=== PATIENT | female | born 2005 | race Two or more races ===

== ENCOUNTER → 2024-03-28 20:48 | Outpatient (BNV) | payer OTHER, SELFPAY | PROVIDERS: Emergency Provider Internal Medicine; Visit Provider Radiology Diagnostic Radiology | DX: S09.90XA Unspecified injury of head, initial encounter (principal) | CPT/HCPCS: 70450; 70486; 72125 ==

== ENCOUNTER 2024-06-21 20:58 | Emergency (ER) | payer SELFPAY ==
[2024-06-21 21:03] VITALS: BP 130/83; PULSE 86; RESP 18; TEMP 36.9; O2SAT 98; BMI 26.6
[2024-06-21 21:37] LABS: IDNOW Serial# 6674DD1D; Strep A Nucleic Acid Negative (Negative)
[2024-06-21 22:13] LABS: Influenza A PCR NEGATIVE (Negative); Influenza B PCR POSITIVE (Negative); Resp Syncy Virus RNA Qual PCR NEGATIVE (Negative); SARS COV2 PCR INHOUSE NEGATIVE (Negative)
--- NOTE | 2024-06-22 00:04 | PC.NURSE ---
Pt eval by PA in triage, + flu B, cleared for dc home.
--- NOTE | 2024-06-22 00:15 | ED_ITS ---
HPI - URI/Sore Throat General Chief Complaint: Upper Respiratory Symptoms Stated Complaint: Sore throat Time Seen by Provider: 06/21/24 23:46 Source: patient Mode of arrival: ambulatory Limitations: no limitations History of Present Illness ED Provider: Ximena Robin NP HPI Narrative: patient is a 18-year-old female who presents emergency department for evaluation of multiple flu-like symptoms including a productive cough, nasal congestion, sore throat, subjective fever for the past 4 days. Reports that she has been alternating between DayQuil and NyQuil with only some improvement in her symptoms. Denies headache, dizziness, neck pain, neck stiffness, chest pain, shortness of breath, difficulty breathing, nausea, vomiting, abdominal pain, numbness or tingling of the extremities, genitourinary symptoms. Related Data Allergies Allergy/AdvReac Type Severity Reaction Status Date / Time No Known Allergies Allergy Verified 06/21/24 21:04 Review of Systems Review of Systems: Yes all other systems are reviewed and are negative PMFSH Past Medical History Attestation statement: The following information was validated with the patient. Source: old records reviewed Social History Social History Do you have a plan to hurt others: No Plan Physical Exam Vital Signs: Vital Signs: Last Vital Signs Temp 98.4 F 06/21/24 21:03 Pulse 86 06/21/24 21:03 Resp 18 06/21/24 21:03 BP 130/83 06/21/24 21:03 Pulse Ox 98 06/21/24 21:03 O2 Del Method Room Air 06/21/24 21:03 BMI result Body Mass Index 26.6 Appearance: Alert.?Oriented to person, place and time. No acute distress.?Normal affect. ENT: TM normal bilaterally. Pharynx Is erythematous without tonsillar hypertrophy or exudates. Uvula is midline. No trismus. No drooling.? Neck: Normal inspection.? Neck supple.??No cervical adenopathy CVS: Heart sounds normal. Normal heart rate and rhythm.? Pulses normal.?? Respiratory: No respiratory distress.? Lung sounds clear to auscultation bilaterally?? Skin: Skin warm and dry.? Normal skin color.? ? Neuro: Moves all extremities spontaneously. Sensation intact bilaterally. No motor deficits. Ambulates with normal steady gait. Medical Decision Making Medical Decision Making [facility] [place] Narrative: Patient is a 18-year-old female presents emergency department for evaluation of viral type symptoms as per HPI. COVID-19 /RSV testing is negative. Group a strep testing is negative. Examination is not consistent with RPA /[employer]ESSION[employer]. Influenza B testing is positive, consistent with her symptoms. Given duration since illness would not be a candidate for Tamiflu at this time. History and physical exam with low suspicion for pneumonia. Well-appearing, nontoxic, afebrile, no tachycardia or tachypnea/hypoxia. Speaking clear full sentences, ambulatory with steady gait. Discussed conservative treatment including rest, hydration, Tylenol/ibuprofen as needed for fever and body aches, saline nasal spray, humidifier, bygj-fnw-gtsrelh cold medication. Advised to follow-up with primary care provider as needed, discussed reasons to return back to the emergency department. All questions were answered. Patient discharged home in stable condition. Differential Diagnosis Differential Diagnoses: The differential diagnosis associated with the presentation includes ( See narrative above) Admission/Observation Consideration of admission/observation: Escalation of care including admission/observation considered ( see narrative above) Lab Data [facility] [place] Lab Attestation statement: I reviewed the patient's lab results. ( see narrative above) Labs: Lab Results 06/21/24 Range/Units 21:20 Influenza Type A (PCR) NEGATIVE (Negative) Influenza Type B (PCR) POSITIVE A (Negative) RSV RNA Qual (PCR) NEGATIVE (Negative) SARS-CoV-2 RNA (RT-PCR) NEGATIVE (Negative) S. pyogenes GrpA SANDRA Negative (Negative) External Record Review External record reviewed: Outpatient record Tests considered The following testing was considered but not selected: See narrative above, CXR deferred Prescription Management I considered prescription management with: Pain Medication ( acetaminophen/ibuprofen) and Antiviral ( see narrative above) Discharge Plan Discharge Clinical Impression: Influenza B Patient Disposition: Home, Self-Care Instructions: Influenza (ED) Additional Instructions: Be sure to rest, stay well hydrated drinking plenty of fluids, eat small frequent meals. Tylenol/ibuprofen can be used as needed for fever/pain. Ksnj-qjl-hessqzm cold medications may be helpful as well for symptoms. Saline nasal spray, humidifier may be helpful for nasal congestion. You may return to the emergency department with any new or worsening symptoms or concerns. Follow-up with your primary care provider as needed. Should remain out of school/ work until symptoms have resolved and have been without a fever for 24 hours without the use of Tylenol or ibuprofen. Referrals: Physician,Unknown J [Primary Care Provider] - Stand Alone Forms: Work/School Release Print Language: Tamazight
[2024-06-22 00:53] VITALS: BP 130/83; PULSE 86; RESP 18; TEMP 36.9; O2SAT 98
== END 2024-06-22 00:53 | disposition home or self-care (01) ==
PROVIDERS: Emergency Provider Emergency Medicine
DX: J10.1 Influenza due to other identified influenza virus with other respiratory manifestations (principal); R05.9 Cough, unspecified; R09.81 Nasal congestion; R50.9 Fever, unspecified; Z03.818 Encounter for observation for suspected exposure to other biological agents ruled out
CPT/HCPCS: 0241U; 87651; 99282; 99283

== ENCOUNTER 2024-09-12 11:06 | Outpatient (REF) | payer MEDICAID, SELFPAY ==
[2024-09-12 16:09] LABS: CT PCR DETECTED (Not Detect.); NG PCR NOT DETECTED (Not Detect.)
[2024-09-13 08:21] LABS: HBS Num1 1.81 mIU/mL (0-7.99); HBsAGNum1 0.35 S/CO (0.00-0.99); HIV AB/AG Nonreactive (Nonreactive); HIV Num 1 0.07 S/CO (0.00-0.99); Hepatitis B Surface Antigen Negative (Negative); ~Hepatitis B Surface Antibody NONREACTIVE (Nonreactive)
[2024-09-13 14:58] LABS: RPR Rapid Plasma Reagin NON-REACTIVE (NON-REACTIVE)
[2024-09-13 20:39] LABS: HCV Log PCR <1.18 NOT DETECTED Log IU/mL (NOT DETECTED); HepC Viral Load <15 NOT DETECTED IU/mL (NOT DETECTED)
== END 2024-09-12 11:07 | disposition home or self-care (01) ==
LOC: HO.HHCL 11:06
PROVIDERS: PCP Internal Medicine Geriatric Medicine; Visit Provider Internal Medicine Geriatric Medicine
DX: N76.2 Acute vulvitis (principal)
CPT/HCPCS: 86592; 86706; 87255; 87340; 87389; 87491; 87522; 87591

== ENCOUNTER 2024-11-27 17:23 | Emergency (ER) | payer OTHER, SELFPAY ==
[2024-11-27 17:31] VITALS: BP 127/78; PULSE 91; RESP 18; TEMP 36.8; O2SAT 99; BMI 35.9
--- NOTE | 2024-11-27 17:33 | ED_ITS ---
HPI - General Adult General Chief complaint: Upper Respiratory Symptoms Stated complaint: sore throat Time Seen by Provider: 11/27/24 19:11 Source: patient Mode of arrival: ambulatory Limitations: no limitations History of Present Illness ED Provider: Rico Reddy HPI narrative: 19 yold female with pmh of strep presents to the ED for sore throat, bodyaches, and chills. Related Data Previous Rx's ?Medication ?Instructions ?Recorded amoxicillin 875 mg-potassium 1 tab PO Q12H 10 days #20 tabs 11/27/24 clavulanate 125 mg tablet naproxen 500 mg tablet 500 mg PO BID PRN pain #14 t abs 11/27/24 Allergies Allergy/AdvReac Type Severity Reaction Status Date / Time No Known Allergies Allergy Verified 11/27/24 17:33 Review of Systems 2 Review of Systems: sore throat, bodyaches, and chills Yes all other systems are reviewed and are negative [facility] Social History Social History Advance Directives: No Advance Directives Information Provided: No Physical Exam ED Vital Signs: Vital Signs - 24 hr 11/27/24 17:31 Temperature 98.2 F Pulse Rate 91 Respiratory Rate 18 Blood Pressure 127/78 Pulse Oximetry 99 Oxygen Delivery Method Room Air BMI result Body Mass Index 35.9 Const Orientation/consciousness: patient oriented x3 HENMT Head: Yes normal to inspection, Yes No palpable skull fracture present, Yes normocephalic and Yes atraumatic Ears: hearing grossly normal bilaterally, external ears normal, TM's normal bilaterally, TM normal on the right, TM normal on the left, EAC's normal, mastoids normal and no periauricular adenopathy Throat: Yes posterior oropharynx normal, Yes uvula midline and Yes abnormal tonsil (bilateral tonsillar exudates) Eyes General: appearance normal, both eyes and all related structures Neck Neck: Yes normal visual inspection, Yes full ROM, Yes no lymphadenopathy, Yes no meningeal signs, Yes trachea midline, Yes supple, No anterior neck swelling and No tender Chest Chest palpation & inspection: normal inspection of the chest and normal palpation of entire chest wall Resp Effort & Inspection: normal respiratory effort and able to speak in complete sentences Auscultation: clear to auscultation bilaterally Cardio Jugular venous distension: no JVD Heart sounds: S1 normal heart sound present and S2 normal heart sound present GI Inspection: Yes normal to inspection Palpation (GI): Soft to palpation, not firm, nontender, no guarding and not rigid General: Yes no CVA tenderness Back/Spine/Pelvis Back: no CVA tenderness and No back tenderness Skin General skin exam: no rashes or lesions noted, elasticity normal and turgor normal Neuro General: patient oriented x3, gait normal, tone normal, moves all extremities, Normal light touch and pain sensation and no meningeal signs Extrem General: Yes normal to inspection, Yes full ROM and Yes capillary refill normal Psych Appearance: grossly normal, well kempt and not disheveled Course Course Course Narrative: RME; 19-year-old female presents to ED for sore throat for the past 4 days. Physical exam positive for bilateral exudates. Uvula is midline. SARs strep mono ordered. Medications Administered Discontinued Medications Generic Name Dose Route Start Last Admin Trade Name Freq PRN Reason Stop Dose Admin Dexamethasone Sodium Phosphate 10 mg 11/27/24 19:16 11/27/24 19:33 Dexamethasone Sod Phosphate 10 Mg/Ml Vial IVPUSH 11/27/24 19:17 10 mg ONCE ONE Administration Lidocaine HCl 15 ml 11/27/24 19:16 11/27/24 19:33 Lidocaine Hcl Viscous 2 % 15 Ml Solution MUCOUS MEM 11/27/24 19:17 15 ml ONCE ONE Administration Medical Decision Making Medical Decision Making [facility] Narrative: 19 yold female presents tot he ED For sore throat. Patient states sore throat for the past 4 days. Patient denies any fever chills coughing chest pain shortness of breath or drooling. Exam positive for bilateral tonsillar exudates with some swelling. Negative for signs of peritonsillar abscess. Uvula is midline. Patient has slight elevated white blood cell count. Slight elevation in liver enzymes. Patient does not have any abdominal pain nausea or vomiting. Patient has and mother made aware of these lab results will follow up with primary care provider. Not suspecting peritonsillar absces,s Darrell's angina, retropharyngeal abscess, epiglottitis, or any life threatening eitology. Patient passed PO exam. Differential Diagnosis Differential Diagnoses: The differential diagnosis associated with the presentation includes (Strep, mono) Admission/Observation Consideration of admission/observation: Escalation of care including admission/observation considered Lab Data [facility] Lab Attestation statement: I reviewed the patient's lab results. 11/27/24 17:58 11/27/24 17:58 Labs: Lab Results 11/27/24 Range/Units 17:58 WBC 13.6 H (4.8-10.8) X10*3/uL RBC 4.77 (4.20-5.50) X10*6/uL Hgb 13.1 (12.0-16.0) g/dl Hct 38.2 (37.0-47.0) % MCV 80.1 (80.0-98.0) fL MCH 27.5 (27.0-33.0) pg MCHC 34.3 (31.0-35.0) g/dl RDW 13.1 (11.0-16.0) % Plt Count 246 (160-400) X10*3/uL MPV 9.6 (9.4-12.3) fL Immature Gran % (Auto) 1.2 H (0.0-0.4) % Neut % (Auto) 79.1 H (45-73) % Lymph % (Auto) 9.3 L (20-40) % [place] % (Auto) 10.1 (2-11) % Eos % (Auto) 0.1 (0-4) % Baso % (Auto) 0.2 (0-2) % Lymph # (Auto) 1.3 (1.2-4.9) X10*3/uL [place] # (Auto) 1.4 H (0.1-1.2) X10*3/uL Eos # (Auto) 0.0 (0.0-0.4) X10*3/uL Baso # (Auto) 0.0 (0.0-0.2) X10*3/uL Abs Immat Gran (auto) 0.16 H (0.00-0.03) X10*3/uL Absolute Neuts (auto) 10.8 H (2.0-8.3) x10*3/uL Absolute Nucleated RBC 0.000 (0.0-0.012) X10*3/uL Nucleated RBC % (auto) 0.0 (0.0-0.2) /100WBC Sodium 140 (135-145) mmol/L Potassium 3.6 (3.3-5.1) mmol/L Chloride 107 (96-108) mmol/L Carbon Dioxide 22 (22-29) mmol/L Anion Gap 15 (12-20) BUN 5 L (9-16) mg/dL Creatinine 0.72 (0.5-1.4) mg/dL Estim Creat Clear Calc 149.3 Estimated GFR > 60 Random Glucose 123 H (60-115) mg/dL Calcium 9.5 (8.4-10.2) mg/dL Total Bilirubin 0.5 (0.0-1.0) mg/dL AST 30 (5-31) U/L ALT 93 H (0-31) U/L Alkaline Phosphatase 199 H (39-117) U/L Total Protein 8.2 H (6.5-8.0) g/dL Albumin 4.4 (3.5-5.0) g/dL Beta HCG, Quant < 2 mIU/mL COVID-19 (ARIC) Negative (Negative) COVID-19 Clin Com See Note Monoscreen Negative (Negative) Influenza Type A (SANDRA) Negative (Negative) Influenza Type B (SANDRA) Negative (Negative) Influenza A & B Note See Note S. pyogenes GrpA SANDRA Negative (Negative) Prescription Management I considered prescription management with: Pain Medication and Antibiotic Discharge Plan Discharge Clinical Impression: Acute tonsillitis Patient Disposition: Home, Self-Care Instructions: Tonsillitis (ED) Additional Instructions: You came back negative for influenza, COVID, strep and mono. Lab work shows slight elevation in liver enzymes, glucose, and white blood cell count. Recommend follow up with the primary care provider. You will be discharged with antibiotics. Return to the ED immediately for any swelling, drooling, change in voice, inability tolerate solid food/liquid, fever, chills, chest pain, shortness of breath, or any other concerning symptoms. [facility] [address] [place] [id number] Air Traffic Systems Technician: John Carranza M.D. Specimen Inquiry Name: Colon,Elimary Age/Sex: 19/F [facility] 2005 [id number]#: [id number] Attend Dr: Debra Harris Milton DO Re11/27/24 Status: PRE ER Location: [facility] isch: SPEC : [id number] BRETT: 11/27/24 STATUS: COMP REQ : [id number] RECD: 11/27/[address]: Rico Reddy COMP: 11/27/24 ENTERED: 11/27/[address]: Physician,None ORDERED: CBC Auto Diff Test Result Flag Reference WBC 13.6 H 4.8-10.8 X10*3/uL RBC 4.77 4.20-5.50 X10*6/uL HGB 13.1 12.0-16.0 g/dl HCT 38.2 37.0-47.0 % MCV 80.1 80.0-98.0 fL MCH 27.5 27.0-33.0 pg MCHC 34.3 31.0-35.0 g/dl RDW 13.1 11.0-16.0 % PLT 246 160-400 X10*3/uL MPV 9.6 9.4-12.3 fL Neut Pct Auto 79.1 H 45-73 % ImGran Pct Auto 1.2 H 0.0-0.4 % Lymp Pct Auto 9.3 L 20-40 % Taos Pct Auto 10.1 2-11 % Eos Pct Auto 0.1 0-4 % Baso Pct Auto 0.2 0-2 % NRBC Pct Auto 0.0 0.0-0.2 /100WBC ANC Neut Abs # 10.8 H 2.0-8.3 x10*3/uL ImGran Abs Auto 0.16 H 0.00-0.03 X10*3/uL Lymph Abs Auto 1.3 1.2-4.9 X10*3/uL [place] Abs Auto 1.4 H 0.1-1.2 X10*3/uL Eos Abs Auto 0.0 0.0-0.4 X10*3/uL Baso Abs Auto 0.0 0.0-0.2 X10*3/uL NRBC Abs Auto 0.000 0.0-0.012 X10*3/uL END OF REPORT RUN: 11/27/241948 PAGE 1 [facility] [address] [place] [id number] [employer] Traffic Systems Technician: John Carranza M.D. Specimen Inquiry Name: Danial Farley Age/Sex: 19/F : 2005 Unit#: [id number] Attend Dr: Debra Harris DO Re11/27/24 Status: PRE ER Location: [facility] isch: SPEC : [id number] BRETT: 11/27/24 STATUS: COMP REQ : [id number] RECD: 11/27/[address]: Rico Reddy COMP: 11/27/24-1825 ENTERED: 11/27/24-[address]: Physician,None ORDERED: CMP, HCG Quant Test Result Flag Reference Sodium 140 135-145 mmol/L Potassium 3.6 3.3-5.1 mmol/L CL 107 96-108 mmol/L CO2 22 22-29 mmol/L Gap 15 12-20 BUN 5 L 9-16 mg/dL Creat 0.72 0.5-1.4 mg/dL Estimated CrCl 149.3 Provided height and weight: 167.64 cm, 100.9 kg. eGFR (calculated from the MDRD study equation) and eCrCl (calculated from the Cockcroft-Gault equation) are based on different parameters and may not yield comparable results. If eCrCl result is absurd, please check patient's height/weight. eGFR > 60 Chronic Kidney Disease: Estimated GFR < 60 mL/min/1.73m2 Severe Kidney Disease: Estimated GFR < 15 mL/min/1.73m2 Glucose, Random 123 H 60-115 mg/dL CA 9.5 8.4-10.2 mg/dL Total Bili 0.5 0.0-1.0 mg/dL AST (GOT) 30 5-31 U/L ALT (GPT) 93 H 0-31 U/L Protein, Total 8.2 H 6.5-8.0 g/dL Alb 4.4 3.5-5.0 g/dL Alk Phos 199 H 39-117 U/L HCG Quant < 2 mIU/mL Weeks post LMP Approximate hCG (Last Menstrual Period) Range (mIU/ml) 3 - 4 weeks 9 - 130 4 - 5 weeks 75 - 2,600 5 - 6 weeks 850 - 20,800 6 - 7 weeks 4000 - 100,200 7 - 12 weeks 11,500 - 289,000 12 - 16 weeks 18,300 - 137,000 16 - 29 weeks (2nd trimester) 1,400 - 53,000 29 - 41 weeks (3rd trimester) 940 - 60,000 The Jasso B-hCG assay is used for the early detection of ; it cannot be used to diagnose any condition unrelated to . If a B-hCG level is not supported by the clinical evidence, results should be confirmed by an alternative method (qualitative urine hCG, for example). END OF REPORT Prescriptions: New amoxicillin-pot clavulanate 875-125 mg tablet 1 tab PO Q12H 10 Days Qty: 20 0RF naproxen 500 mg tablet 500 mg PO BID PRN (Reason: pain) Qty: 14 0RF Stand Alone Forms: Work/School Release Interventions: ED Discharge Assessment Last Done: 11/27/24 20:00 Discharge Date/Time: 11/27/24 20:00 Print Language: Estonian
[2024-11-27 18:03] LABS: MANUAL DIFF FLAG NO
[2024-11-27 18:14] LABS: IDNOW Serial# 08D9AD1C; Strep A Nucleic Acid Negative (Negative)
[2024-11-27 18:18] LABS: COVID-19 Test Negative (Negative); Hematocrit 38.2 % (37.0-47.0); Hemoglobin 13.1 g/dl (12.0-16.0); IDNOW Serial# 55D5AD1C; Imm Gran Abs Auto 0.16 X10*3/uL (0.00-0.03); Imm Gran Pct Auto 1.2 % (0.0-0.4); Lymphocytes Absolute Auto 1.3 X10*3/uL (1.2-4.9); Mean Corpuscular HGB Conc 34.3 g/dl (31.0-35.0); Mean Corpuscular Hemoglobin 27.5 pg (27.0-33.0); Mean Corpuscular Volume 80.1 fL (80.0-98.0); NRBC Abs Auto 0.000 X10*3/uL (0.0-0.012); NRBC Pct Auto 0.0 /100WBC (0.0-0.2); Platelet Count 246 X10*3/uL (160-400); Red Blood Count 4.77 X10*6/uL (4.20-5.50); White Blood Count 13.6 X10*3/uL (4.8-10.8)
[2024-11-27 18:20] LABS: IDNOW Serial# 58CA691E; Influenza B2 Negative (Negative)
[2024-11-27 18:26] LABS: Alanine Aminotransferase 93 U/L (0-31); Albumin Level 4.4 g/dL (3.5-5.0); Alkaline Phosphatase 199 U/L (39-117); Anion Gap 15 (12-20); Aspartate Amino Transferase 30 U/L (5-31); Blood Urea Nitrogen 5 mg/dL (9-16); Calcium 9.5 mg/dL (8.4-10.2); Carbon Dioxide 22 mmol/L (22-29); Chloride 107 mmol/L (96-108); Creatinine Clr Calc Pharmacy 149.3; Estimated Glomerular Filt Rate > 60; Potassium 3.6 mmol/L (3.3-5.1); Sodium 140 mmol/L (135-145); Total Protein 8.2 g/dL (6.5-8.0)
[2024-11-27] MEDS: Lidocaine HCl Viscous 2 % 15 ML SOLUTION MUCOUS MEM (19:33)
--- OUTSIDE RECORDS SUMMARY | 2024-11-27 19:57 | XMS_ITS | Clinical Summary ---
Author Organization [employer] Address [address] [facility] [address] [place] [address] Care Team Providers Care Glove Wrapper Name Role Phone Unavailable Primary Care Provider Unavailabl e Allergies No known active allergies Encounters Date Type Department Care Team Description 09/13/2024 Results Follow-Up [facility] [address] [place] [phone] NameReinaldo MD Chlamydia/N. Gonorrhoeae RNA, TMA, Urogenitial, HIV-1/2 Antigen and Antibodies, Fourth Generation, with Reflexes, Hepatitis B surface antigen, EIA, Hepatitis B Surface Antibody, Qualitative 09/12/2024 11:00 AM EDT Office Visit [facility] [address] [place] [phone] NameReinaldo MD Acute vulvitis (Primary Dx) 09/12/2024 Travel from Last 3 Months Social History Tobacco Use Types Packs/Day Years Used Date Smoking Tobacco: Never Assessed Comments Unknown Sex and Gender Information Value Date Recorded Sex Assigned at Female 01/20/2022 10:26 AM EDT Legal Sex Female 10:26 AM EDT Gender Identity Female 01/20/2022 10:26 AM EDT Sexual Orientation Choose not to disclose 2021 10:26 AM EDT Last Filed Vital Signs Vital Sign Reading Time Taken Comments Blood Pressure 121/76 09/12/2024 10:44 AM EDT Pulse 85 09/12/2024 10:44 AM EDT Temperature 36.7 C (98.1 F) 09/12/2024 10:44 AM EDT Respiratory Rate 16 09/12/2024 10:44 AM EDT Oxygen Saturation 98% 09/12/2024 10:44 AM EDT Inhaled Oxygen Concentration - - Weight 94.8 kg (209 lb) 09/12/2024 10:44 AM EDT Height 165.1 cm (5' 5 ) 07/19/2020 12:04 AM EDT Body Mass Index - - Plan of Treatment Health Maintenance Due Date Last Done Comments Depression Screening 2004 Lipid Panel 2004 SDOH Screening 2004 Disability Screening 2004 Alcohol/Substance Use Screening 2016 Tobacco Screening 2016 Family Planning (PISQ) 08/17/2019 Meningococcal B Vaccine (1 of 2 - Standard) 2020 COVID-19 Vaccine ( - season) 2024 Influenza Vaccine (#1) 2024 05/03/2018 Chlamydia and Gonorrhea Screening 09/12/2025 09/12/2024 DTaP/Tdap/Td Vaccines (6 - Td or Tdap) 07/19/2030 07/19/2020, 12/15/2013, 07/02/2009, Additional history exists Zoster Vaccines (1 of 2) 2054 RSV Patients and Patients Aged 60 years or older (1 - 1-dose 75+ series) 08/17/2079 HIB Vaccines Aged Out 02/25/2005, 2004 No lo nger eligible based on patient's age to complete this topic IPV Vaccines Completed 07/02/2009, 04/23, 01/26/2005, Additional history exists Hepatitis B Vaccines Completed 03/01/2010, 02/25/2005, 2004 Hepatitis A Vaccines Completed 11/04/2016, 08/25/19 15 Meningococcal Vaccine Aged Out 11/04/2016 No leona miquel eligible based on patient's age to complete this topic HPV Vaccines Completed 05/03/2018, 11/04/2016 HIV Screening Completed 09/12/2024 Hepatitis C Screening Completed 09/12/2024 Pneumococcal Vaccine: Pediatrics (0 to 5 Years) and At-Risk Patients (6 to 49) Years Aged Out No longer eligible based on patient's age to complete this topic RSV under 20 months Aged Out No longe r eligible based on patient's age to complete this topic Rotavirus Vaccines Aged Out No longer eligible based on patient's age to complete this topic Procedures Procedure Name Priority Date/Time Associated Diagnosis Comments RPR (MONITOR) W/REFL TITER Routine 09/12/2024 11:16 AM EDT Acute vulvitis HEPATITIS B SURFACE ANTIBODY, QUALITATIVE Routine 09/12/2024 11:16 AM EDT Acute vulvitis HEPATITIS B SURFACE ANTIGEN, EIA Routine 09/12/2024 11:16 AM EDT Acute vulvitis HEPATITIS C VIRAL RNA, QUANTITATIVE, REAL-TIME PCR Routine 09/12/2024 11:16 AM EDT Acute vulvitis HIV 1/2 ANTIGEN/ANTIBODY, FOURTH GENERATION W/RFL Routine 09/12/2024 11:16 AM EDT Acute vulvitis CHLAMYDIA/N. GONORRHOEAE RNA, TMA, UROGENITAL Routine 09/12/2024 11:16 AM EDT Acute vulvitis HERPES SIMPLEX VIRUS CULTURE Routine 09/12/2024 11:03 AM EDT Acute vulvitis from Last 3 Months Results * Hepatitis C Viral RNA, Quantitative, Real-Time PCR (09/12/2024 11:16 AM EDT) Hepatitis C Viral Load <15 NOT DETECTED NOT DETECTED IU/mL [facility] HCV Log PCR <1.18 NOT DETECTED NOT DETECTED Log IU/mL [facility] Comment:For additional infor april, please refer tohttp://education.[employer]/faq/ATU04y5(This link is being provided for informational/educational purposes only.)THIS TEST WAS PERFORMED AT:[facility])[address] [place] [id number] ALEJO MD Blood Venous blood specimen / Unknown 09/12/2024 11:16 AM EDT 09/12/2024 12:50 PM EDT us Reinaldo Name LAB BLOOD ORDERABLES Final Resul t [facility] [address] [place] [phone] * (ABNORMAL) Chlamydia/N. Gonorrhoeae RNA, TMA, Urogenitial (09/12/2024 11:16 AM EDT) CT PCR DETECTED(A) Not Detect. [facility] Comment:Detected results may be observed after successful antibiotictreatment due to target nucleic acids from residualnon-viable chlamydia. As with many diagnostic tests, resultsfrom the Xpert CT/NG assay should be interpreted inconjunction with other laboratory and clinical dataavailable to the clinician.Xpert CT/NG performance has not been evaluated in patientsless than 14 years of age. The assay should not be used forthe evaluationof suspected sexual abuse or for other medico- legalindications. Additional testing is recommended inany circumstance when false positive or false negativeresults could lead to adverse medical, social orpsychological consequences.These results must be reported by the ordering clinician orclinical facility to the [facility]as required by state law. NG PCR NOT DETECTED Not Detect. [facility] Comment:A not detected test result does not exclude the possibilityof infection because test results can be affected byimproper specimen collection, concurrent antibiotic therapy,or the number of organisms in the specimen which may bebelow the sensitivity of the test. As with many diagnostictests, results from the Xpert CT/NG assay should beinterpreted in conjunction with other laboratory andclinical data available to the clinician.Xpert CT/NG performance has not been evaluated in patientsless than 14 years of age. The assay should not be used forthe evaluationof suspected sexual abuse or for other medico-legalindications. Additional testing is recommended in anycircumstance when false positive or false negative resultscould lead to adverse medical, social or psychologicalconsequences. Urine (Urine, Random) 09/12/2024 11:16 AM EDT 09/12/2024 12:43 PM EDT Narrative [facility] - 09/12/2024 4:10 PM EDT Urine us Reinaldo Name LAB MICROBIOLOGY - GENERAL ORDER ROBERT Final Result Performing Organization Address [facility] Co de Phone Number [facility] [address] [place] [address] [phone] * Hepatitis B surface antigen, EIA (09/12/2024 11:16 AM EDT) Pathologist [facility] Hepatitis B Surface Ag Negative Negative [facility] Blood Venous blood specimen / Unknown 09/12/2024 11:16 AM EDT 09/12/2024 12:50 PM EDT us Reinaldo Arredondo MD LAB BLOOD ORDERABLES Final Resul t Performing Organization Address [facility] de Phone Number [facility] [address] [place] [phone] * RPR (Monitor) with Reflex to??Titer (09/12/2024 11:16 AM EDT) Pathologist [facility] RPR (Monitor) w/Refl Titer NON-REACTI VE NON-REACT [facility] Comment:THIS TEST WAS PERFOR MED AT:[employer] [address] [id number] ALEJO MD Rapid Plasma Reagin Ab Titer TNP [facility] Blood Venous blood specimen / Unknown 09/12/2024 11:16 AM EDT 09/12/2024 12:50 PM EDT us Reinaldo Arredondo MD LAB BLOOD ORDERABLES Final Resul t Performing Organization Address [facility] Co de Phone Number [facility] [address] [place] [phone] * HIV-1/2 Antigen and Antibodies, Fourth Generation, with Reflexes (09/12/2024 11:16 AM EDT) Pathologist [facility] HIV AB/AG Nonreactive Nonreactive [facility] Comment:HIV-1 p24 Ag and/or HIV-1/HIV-2 Ab not detected.A test result that is nonreactive does not exclude thepossibility of exposure to or infection with HIV-1 and/orHIV-2. Nonreactive results in this assay for individualswith prior exposure to HIV-1 and/or HIV-2 may be due toantigen and antibody levels that are below the limit ofdetection of this assay.The [employer] HIV Ag/Ab Combo assay result andsupplemental assay results should be interpreted inconjunction with the patient's clinical presentation,history and other laboratory results. If the results areinconsistent with clinical evidence, additional testing issuggested to confirm the result. Blood Venous blood specimen / Unknown 09/12/2024 11:16 AM EDT 09/12/2024 12:50 PM EDT us Reinaldo Arredondo MD LAB BLOOD ORDERABLES Final Resul t Performing Organization Address [facility] Co de Phone Number [facility] [address] [place] [phone] * Hepatitis B Surface Antibody, Qualitative (09/12/2024 11:16 AM EDT) ~Hepatitis B Surface Antibody NONREACTIVE Nonreactive [facility] Comment:Nonreactive: < 8.00 mIU/mL Blood Venous blood specimen / Unknown 09/12/2024 11:16 AM EDT 09/12/2024 12:50 PM EDT us Reinaldo Arredondo MD LAB BLOOD ORDERABLES Final Resul t Performing Organization Address [facility] Co de Phone Number [facility] [address] [place] [phone] * Herpes Simple Virus Culture (09/12/2024 11:03 AM EDT) Herpes Virus Culture SEE NOTE [facility] Comment:HERPES SIMPLEX VIRUS CULTURE Micro Number: [id number] Test Status: Final Specimen Source: Vagina Specimen Quality: Adequate HSV Culture: Not IsolatedTHIS TEST WAS PERFORMED AT:[employer] [phone] MERATI,MD Swab Cervical swab / Unknown 09/12/2024 11:03 AM EDT 09/12/2024 12:49 PM EDT Narrative [facility] - 09/15/2024 2:03 PM EDT BHARTI CHRISTOPHER us Reinaldo Name LAB MICROBIOLOGY - GENERAL ORDER ROBERT Final Result Performing Organization Address City/State/[facility] Co de Phone Number [facility] [address] [place] [address] [phone] from Last 3 Months Insurance HSN PARTIAL
[2024-11-27 20:00] VITALS: BP 127/78; PULSE 91; RESP 18; TEMP 36.8; O2SAT 99
== END 2024-11-27 20:00 | disposition home or self-care (01) ==
PROVIDERS: Physician Assistant; Emergency Provider Student in an Organized Health Care Education/Training Program
DX: J03.90 Acute tonsillitis, unspecified (principal); M79.10 Myalgia, unspecified site; Z11.52 Encounter for screening for COVID-19; Z03.818 Encounter for observation for suspected exposure to other biological agents ruled out; Z79.899 Other long term (current) drug therapy
CPT/HCPCS: 36415; 80053; 84702; 85025; 86308; 87502; 87635; 87651; 99282; 99283; J1100